=== PATIENT | female | born 1970 | race African-American/Black ===

== ENCOUNTER 2023-03-16 11:11 | Emergency (ER) | payer BC ==
[~2023-03-16] VITALS: Ht 180.3 cm; Wt 68.0 kg
[2023-03-16 11:24] VITALS: BP 120/72; TEMP 99; O2SAT 98
[2023-03-16] MEDS ORDERED: IBUPROFEN 600 MG TABLET PO ONE (12:00)
[2023-03-16] MEDS ORDERED: IBUPROFEN 600 MG TABLET ONE (12:01)
[2023-03-16] MEDS ORDERED: NAPR-1164 PO (12:37)
[2023-03-16] MEDS ORDERED: BENZ-13 PO (12:37)
== END 2023-03-16 12:47 | disposition home or self-care (01) ==
LOC: ER 11:20
DX: J06.9 Acute upper respiratory infection, unspecified (principal); R05.9 Cough, unspecified; F41.9 Anxiety disorder, unspecified; Z91.018 Allergy to other foods; Z20.822 Contact with and (suspected) exposure to COVID-19
CPT/HCPCS: 99283; 87426; 87804 ×2; C9803